=== PATIENT | female | born 1970 | race Two or more races ===

== ENCOUNTER 2019-03-15 12:17 | Inpatient (IN) | payer OTHER ==
[2019-03-09 11:51] LABS: Basophils # (auto) 0.1 uL; Eosinophils # (auto) 0.1 uL; Hemoglobin 11.9 g/dL (12.2-16.2); Lymphocytes # (auto) 1.6 uL; Mean Corpuscular Volume 70.9 fL (80.0-100.0); Nucleated Red Blood Cells % 0.1 %
[2019-03-09 11:53] LABS: Basophils % (auto) 1.1 % (0.0-2.0); Eosinophils % (auto) 1.8 % (0.0-7.0); Hematocrit 37.3 % (36.0-46.0); Lymphocytes % (auto) 22.2 % (10.0-50.0); Mean Corpuscular Hemoglobin 22.5 pg (28.0-32.0); Mean Corpuscular Hgb Conc. 31.8 g/dL (32.0-36.0); Monocytes # (auto) 0.4 uL; Neutrophils % (auto) 68.9 % (37.0-80.0); Platelet Count (auto) 166 10^3/uL (140-450); Red Blood Cells 5.27 10^6/uL (4.0-5.20); White Blood Cell 7.2 10^3/uL (4.4-10.8)
[2019-03-09 12:01] LABS: Urine Bacteria FEW /hpf (None Seen); Urine Blood TRACE /uL (Negative); Urine Mucus FEW (None Seen); Urine Specific Gravity 1.029 (1.001-1.035); Urine WBC 6 /hpf (0 - 5)
[2019-03-09 12:06] LABS: Red Cell Distribution Width 20.1 % (11.8-14.3)
[2019-03-09 12:15] LABS: INR 0.93 (0.9-1.15)
[2019-03-09 12:16] LABS: Partial Thromboplastin Time 26.6 sec (23.64-32.05)
[2019-03-09 12:47] LABS: Potassium 3.6 mmol/L (3.5-5.1)
[2019-03-09 12:57] LABS: Albumin 3.5 g/dL (3.4-5.0); BUN/Creatinine Ratio 20.9; Bilirubin, Total 0.5 mg/dL (0.2-1.0); Calcium 8.8 mg/dL (8.5-10.1); Total Protein 7.4 g/dL (6.4-8.2)
[~2019-03-15] VITALS: Ht 160 cm; Wt 85.7 kg
[2019-03-15] MEDS ORDERED: ceFAZolin 1GM/50ML 50 ML IV ONE ×3 (12:38→13:05)
[2019-03-15] MEDS ORDERED: SUCCINYLCHOLINE CHLORIDE 20 MG/ML 10ML VIAL IV ONE (12:55)
[2019-03-15] MEDS ORDERED: LIDOCAINE W/ EPINEPHRINE 1 % INJ 30ML ONE (12:59)
[2019-03-15] MEDS ORDERED: ACETAMINOPHEN 500 MG TAB PO PRN (13:00)
[2019-03-15] MEDS ORDERED: NITROGLYCERIN 0.4 MG SL TAB SL PRN (13:00)
[2019-03-15] MEDS ORDERED: MORPHINE SULF INJ 2 MG/ML SYRINGE 1ML IV PRN (13:00)
[2019-03-15] MEDS ORDERED: BUPIVACAINE 0.25% INJ 50ML VIAL ONE (13:00)
[2019-03-15] MEDS ORDERED: MIDAZOLAM HCL 1MG/1ML-2 ML VIAL ONE (13:02)
[2019-03-15] MEDS ORDERED: fentaNYL CITRATE 100 MCG/2 ML VL ONE (13:02)
[2019-03-15] MEDS ORDERED: ROCURONIUM 10MG/ML 10ML VIAL IV ONE (13:03)
[2019-03-15] MEDS ORDERED: PROPOFOL 10 MG/ML 20 ML IV ONE (13:03)
[2019-03-15] MEDS ORDERED: GLYCOPYRROLATE 0.2 MG/ML 1ML VIAL IV ONE (13:10)
[2019-03-15] MEDS ORDERED: NEOSTIGMINE 1 MG/ML INJ (10mg/10ML VIAL) IV ONE (13:10)
[2019-03-15] MEDS ORDERED: HYDROmorphone HCL 2 MG/ML VL ONE (14:19)
[2019-03-15] MEDS ORDERED: METHYLENE BLUE 0.5% 5MG/ML 10ml AMP IV ONE (14:24)
[2019-03-15] MEDS ORDERED: hydrALAZINE HCL 20 MG/ML VL IV PRN ×2 (15:30→15:45)
[2019-03-15] MEDS ORDERED: ONDANSETRON HCL 4 MG/2 ML VIAL IV ONE (15:30)
[2019-03-15] MEDS ORDERED: HYDROmorphone HCL 2 MG/ML VL IV PRN (15:30)
[2019-03-15] MEDS ORDERED: ePHEDrine SULFATE 50 MG/ML AMP IV PRN ×2 (15:30→15:45)
[2019-03-15] MEDS: HYDROmorphone HCL 2 MG/ML VL IV PRN ×3 (16:31→16:57)
--- NOTE | 2019-03-15 17:20 | NUR ---
REPORT RECEIVED RECEIVED REPORT FROM JANETTE JONES, [place]. WILL ENDORSE REPORT TO KAREN MCKEON. AWAITING PATIENTS ARRIVAL.
--- NOTE | 2019-03-15 17:30 | NUR ---
ASSUMED CARE OF PATIENT FROM RECOVERY ROOM NO S/S OF DISTRESS. RESPIRATIONS EVEN AND UNLABORED. DRESSINGS CLEAN, DRY, AND INTACT. ABDOMINAL BINDER ON. PATIENT IN BED LOW LOCK POSITION, CALL LIGHT IN REACH. WILL CONTINUE CARE.
--- NOTE | 2019-03-15 17:45 | NUR ---
SPOKE WITH MD FLAHERTY TO VERIFY ADMIT ORDER TO [facility]. ORDERED VERIFIED. WILL CONTINUE CARE.
[2019-03-15] MEDS: SODIUM CHLORIDE 0.9% 1,000 ML IV SCH ×2 (18:30→20:48)
--- NOTE | 2019-03-15 19:35 | NUR ---
CLOSING NOTE ENDORSED CARE TO SURGICAL TRAINING SPECIALIST RN. PATIENT IN BED LOW LOCK POSITION, CALL LIGHT IN REACH. NO S/S OF DISTRESS. DRESSINGS CLEAN, DRY, AND INTACT, ABDOMINAL BINDER ON. FAMILY AT BEDSIDE.
--- NOTE | 2019-03-15 20:00 | NUR ---
OPENING NOTE RECEIVED REPORT FROM DAYSHIFT RN. ASSUMING ROLE OF CARE OF PATIENT AT THIS TIME. PATIENT SHOWING NO SIGN OF DISTRESS, SHORTNESS OF BREATH, BUT PATIENT DOES STATE PAIN. PATIENT IS FATIGUED AND ABLE TO RESPOND IN SLOW SHORT SENTENCES. FAMILY AT BEDSIDE. PATIENT AND FAMILY EDUCATED ON PLAN OF CARE FOR THE NIGHT AND PATIENT AND FAMILY VERBALIZED UNDERSTANDING. INCISIONS ARE CLEAN DRY AND INTACT. NO DRAINAGE NOTED. BED LOWERED, CALL LIGHT WITHIN REACH, AND PATIENT WILL BE ROUNDED ON EVERY HOUR AND NEEDED.
[2019-03-15 22:21] VITALS: BP 118/71
[2019-03-16] VITALS (8 sets, daily range): BP systolic 86–105; BP diastolic 48–68
[2019-03-16] MEDS: MORPHINE SULFATE 4 MG/ML SYR/VIAL IV PRN ×4 (01:00→14:36)
[2019-03-16] MEDS: SODIUM CHLORIDE 0.9% 1,000 ML IV SCH ×3 (04:48→20:48)
[2019-03-16 06:49] LABS: Basophils # (auto) 0 uL; Eosinophils # (auto) 0 uL; Hemoglobin 10.9 g/dL (12.2-16.2); White Blood Cell 10.8 10^3/uL (4.4-10.8)
[2019-03-16 06:51] LABS: Basophils % (auto) 0.1 % (0.0-2.0); Hematocrit 33.7 % (36.0-46.0); Lymphocytes # (auto) 0.9 uL; Lymphocytes % (auto) 8.5 % (10.0-50.0); Mean Corpuscular Hemoglobin 22.9 pg (28.0-32.0); Mean Corpuscular Hgb Conc. 32.4 g/dL (32.0-36.0); Mean Corpuscular Volume 70.7 fL (80.0-100.0); Monocytes # (auto) 0.6 uL; Monocytes % (auto) 5.7 % (0.0-12.0); Neutrophils # (auto) 9.3 uL; Neutrophils % (auto) 85.7 % (37.0-80.0); Nucleated Red Blood Cells % 0.1 %; Platelet Count (auto) 144 10^3/uL (140-450); Red Blood Cells 4.76 10^6/uL (4.0-5.20)
--- NOTE | 2019-03-16 06:54 | NUR ---
KARAN OCAMPO'D PER ORDER
--- NOTE | 2019-03-16 07:00 | NUR ---
Opening Shift Note Assumed care of patient, awake and alert. No S/S of distress/SOB or pain. Instructed on POC and to call for assist PRN, will continue to monitor. Bed locked in the lowest position. Bed rails up x2. Call light in reach.
[2019-03-16] MEDS: ONDANSETRON HCL 4 MG/2 ML VIAL IV PRN ×2 (07:25→14:37)
[2019-03-16 07:29] LABS: Red Cell Distribution Width 20.1 % (11.8-14.3)
--- NOTE | 2019-03-16 07:30 | NUR ---
AT THE BEDSIDE DR. JOHNSON AT THE BEDSIDE UPDATED PATIENT ON POC. ALL QUESTIONS AND CONCERNS ADDRESSED AT THIS TIME.
--- NOTE | 2019-03-16 11:04 | NUR ---
PATIENT CONCERNS PATIENT STATES, "I DON'T THINK I CAN GO HOME TODAY. I CAN BARELY WALK AND DON'T FEEL LIKE EATING. THE PAIN IS TOO MUCH." CALLED MD AND LEFT MESSAGE. AWAITING CALL BACK.
--- NOTE | 2019-03-16 14:53 | NUR ---
AWARE DR. FLAHERTY AWARE OF PATIENTS CONCERNS AND OF PATIENTS PAIN. NEW ORDERS RECEIVED. ORDERS READ BACK AND VERIFIED.
[2019-03-16] MEDS ORDERED: KETOROLAC TROMETH 60MG/2ML VIAL IM ONE (15:00)
--- NOTE | 2019-03-16 15:00 | NUR ---
POM PATIENTS POM AT THE BEDSIDE. PATIENTS FAMILY INSTRUCTED TO TAKE HOME RX OF CIPROFLOXACIN AND HYDROCODONE. PATIENT AWARE THAT SHE IS NOT TO TAKE POM WHILE IN THE HOSPITAL. PATIENT AND FAMILY VERBALIZED UNDERSTANDING.
[2019-03-16] MEDS: HYDROcodone-ACET 10/325MG TAB PO PRN ×2 (17:23→21:36)
[2019-03-16] MEDS: CIPROFLOXACIN HCL 500 MG TAB PO SCH ×2 (17:23→21:36)
--- NOTE | 2019-03-16 17:33 | NUR ---
STAT LABS CONTACTED LAB REGARDING PENDING STAT LAB DRAW. PER LAB, ANTHROPOLOGY LECTURER WILL COME UP NOW.
[2019-03-16 18:01] LABS: Eosinophils # (auto) 0 uL; Hemoglobin 10.7 g/dL (12.2-16.2); Lymphocytes # (auto) 1.2 uL; Monocytes # (auto) 0.8 uL
[2019-03-16 18:02] LABS: Basophils # (auto) 0 uL; Basophils % (auto) 0.4 % (0.0-2.0); Eosinophils % (auto) 0.1 % (0.0-7.0); Hematocrit 33.7 % (36.0-46.0); Lymphocytes % (auto) 10.3 % (10.0-50.0); Mean Corpuscular Hemoglobin 22.6 pg (28.0-32.0); Mean Corpuscular Hgb Conc. 31.8 g/dL (32.0-36.0); Monocytes % (auto) 7.2 % (0.0-12.0); Neutrophils # (auto) 9.6 uL; Nucleated Red Blood Cells % 0.1 %; Platelet Count (auto) 152 10^3/uL (140-450); Red Blood Cells 4.74 10^6/uL (4.0-5.20); White Blood Cell 11.7 10^3/uL (4.4-10.8)
[2019-03-16 18:07] LABS: Red Cell Distribution Width 20.1 % (11.8-14.3)
--- NOTE | 2019-03-16 18:48 | NUR ---
NOTIFIED DR. FLAHERTY NOTIFIED OF PATIENTS STAT LAB RESULTS. NO NEW ORDERS RECEIVED.
--- NOTE | 2019-03-16 19:00 | NUR ---
CLOSING NOTE Patient is awake and alert. No S/S of distress/SOB or pain. Bed locked in the lowest position. Rails up x2. Call light in reach. Endorsed care to night nurse.
--- NOTE | 2019-03-16 19:20 | NUR ---
Opening Shift Note Assumed care of patient, awake and alert. No S/S of distress/SOB. Family members at bedside. Instructed on POC and to call for assist PRN, will continue to monitor for changes Q1hr and PRN. Bed locked and in lowest position.
--- NOTE | 2019-03-16 21:50 | NUR ---
PT ROUNDS PT BP 80s/50s, HOB elevated, feet elevated pt currently running ns 125 inform pt to please notify of any s/sx;s informed pt will make md aware and continue to monitor pt
--- NOTE | 2019-03-16 21:51 | NUR ---
CALLED DR. HANLEY Called Dr. Hanley left voicemail in regards to pt Low BP will continue to monitor pt and will await call back
--- NOTE | 2019-03-16 23:04 | NUR ---
REPAGED MD FLAHERTY Left Voicemail in regards pt BP Multiple BPs taken Right Upper ARM 76/49, Forearm 96/49 Left Upper arm 80/49 Forearm 82/47 will continue to monitor pt.
--- NOTE | 2019-03-16 23:20 | NUR ---
MD FLAHERTY ON THE PHONE Informed MD in regards to pt's blood pressure. Following Telephone orders Given RB IV BOLUS NS DC Mchenry 10/325 Morphine 2 mg IV NORCO 5/325 mg PO q4 PRN will continue to monitor pt.
--- NOTE | 2019-03-16 23:25 | NUR ---
CALLED [facility] MD requested morphine to be placed on hold, inform pharmacist unable to do it on my end, per pharmacist dc morphine and reinstate when receive order to reinstated will continue to monitor pt.
[2019-03-16] MEDS ORDERED: SODIUM CHLORIDE 0.9% 2,550 ML IV ONE (23:45)
--- NOTE | 2019-03-17 03:14 | NUR ---
PT ROUNDS PT rounds with yvonne bhandari resting no s/sx's of distress or sob noted will continue to monitor pt.
[2019-03-17 05:00] VITALS: BP 95/52
[2019-03-17] MEDS: SODIUM CHLORIDE 0.9% 1,000 ML IV SCH ×2 (05:23→12:06)
[2019-03-17] MEDS: HYDROcodone-ACET 5/325MG TAB PO PRN ×2 (05:24→14:20)
--- NOTE | 2019-03-17 07:22 | NUR ---
CLOSING NOTE Report endorsed to day RN, pt awake no s/sx's of distress or sob noted
--- NOTE | 2019-03-17 07:30 | NUR ---
OPENING SHIFT NOTE ASSUMED CARE OF PATIENT. PATIENT IS A &OX4, CA[place]DI[place] SPEAKING WITH C/O 6/10 POST OP PAIN. PATIENT MEDICATED FOR PAIN. EDUCATED RECEPTION CLERK LIGHT USE PRN, PATIENT VERBALIZED UNDERSTANDING. NO CURRENT S/S OF DISTRESS NOTED, CONTINUING TO MONITOR PATIENT Q1 HR
[2019-03-17 09:00] VITALS: BP 94/48
[2019-03-17] MEDS: CIPROFLOXACIN HCL 500 MG TAB PO SCH (10:00)
--- NOTE | 2019-03-17 11:20 | NUR ---
IV removal IV DC'd IN R HAND with sterile technique, catheter fully intact. Pressure dressing applied to site. Patient tolerated procedure well. Discharged with aftercare instructions per MD.
[2019-03-17 13:00] VITALS: BP 92/58
[2019-03-17 15:02] VITALS: BP 92/58
--- NOTE | 2019-03-17 16:20 | NUR ---
DISCHARGE PATIENT LEFT VIA WHEELCHAIR, WITH DAUGHTERS AND FAMILY. NO CURRENT S/S OF DISTRESS NOTED AT THIS TIME, IV'S REMOVED, PATIENT EDUCATED ON CONDITION AND TREATMENT, EDUCATION MATERIAL GIVEN TO PATIENT, ALL PERSONAL PROPERTY IN POSSESSION
== END 2019-03-17 16:51 | disposition home or self-care (01) | DRG 743 ==
LOC: SUR 12:17 → EAST 12:18
PROVIDERS: ADMIT Obstetrics & Gynecology; ATTEND Obstetrics & Gynecology
PROC: 0UT74ZZ Resection of Bilateral Fallopian Tubes, Percutaneous Endoscopic Approach (ICD-10-PCS; 2019-03-15)
PROC: 0USG8ZZ Reposition Vagina, Via Natural or Artificial Opening Endoscopic (ICD-10-PCS; 2019-03-15)
PROC: 8E0W4CZ Robotic Assisted Procedure of Trunk Region, Percutaneous Endoscopic Approach (ICD-10-PCS; 2019-03-15)
PROC: 0UT94ZL Resection of Uterus, Supracervical, Percutaneous Endoscopic Approach (ICD-10-PCS; principal; 2019-03-15 13:10)
DX: N81.2 Incomplete uterovaginal prolapse (principal); N80.0 Endometriosis of uterus; N83.209 Unspecified ovarian cyst, unspecified side; N73.6 Female pelvic peritoneal adhesions (postinfective); Z90.711 Acquired absence of uterus with remaining cervical stump; Z79.899 Other long term (current) drug therapy; Z88.2 Allergy status to sulfonamides; Z88.8 Allergy status to other drugs, medicaments and biological substances; Z98.51 Tubal ligation status
CPT/HCPCS: 36415; 80053; 81001; 84702; 85025; 85610; 85730; 86850; 86900; 86901; 87086; G0378; J0330; J0690; J1885; J2250; J2405; J2704; J3490

== ENCOUNTER 2019-07-12 15:02 | Day surgery (SDC) | payer OTHER ==
[2019-07-10 14:01] LABS: Basophils # (auto) 0.1 uL; Eosinophils # (auto) 0.1 uL; Hemoglobin 12.5 g/dL (12.2-16.2); Lymphocytes # (auto) 1.6 uL; Mean Corpuscular Hemoglobin 23.1 pg (28.0-32.0); Monocytes # (auto) 0.6 uL; White Blood Cell 7.5 10^3/uL (4.4-10.8)
[2019-07-10 14:03] LABS: Basophils % (auto) 1.1 % (0.0-2.0); Eosinophils % (auto) 1.3 % (0.0-7.0); Hematocrit 39.5 % (36.0-46.0); Lymphocytes % (auto) 21.8 % (10.0-50.0); Mean Corpuscular Hgb Conc. 31.7 g/dL (32.0-36.0); Mean Corpuscular Volume 72.9 fL (80.0-100.0); Monocytes % (auto) 7.6 % (0.0-12.0); Neutrophils # (auto) 5.1 uL; Neutrophils % (auto) 68.2 % (37.0-80.0); Nucleated Red Blood Cells % 0.1 %; Platelet Count (auto) 171 10^3/uL (140-450); Red Blood Cells 5.43 10^6/uL (4.0-5.20); Red Cell Distribution Width 20.2 % (11.8-14.3)
[2019-07-10 14:15] LABS: INR 0.95 (0.9-1.15); Partial Thromboplastin Time 26.7 sec (23.64-32.05)
[2019-07-10 14:16] LABS: Urine Bacteria NONE SEEN /hpf (None Seen); Urine Blood TRACE /uL (Negative); Urine Mucus FEW (None Seen); Urine WBC <1 /hpf (0 - 5)
[2019-07-10 14:46] LABS: Potassium 3.9 mmol/L (3.5-5.1)
[2019-07-10 14:56] LABS: Albumin 3.8 g/dL (3.4-5.0); BUN/Creatinine Ratio 16.4; Bilirubin, Total 0.8 mg/dL (0.2-1.0); Calcium 9.1 mg/dL (8.5-10.1); Total Protein 7.7 g/dL (6.4-8.2)
[~2019-07-12] VITALS: Ht 160 cm; Wt 75.7 kg
[2019-07-12] MEDS ORDERED: ceFAZolin 1GM/50ML 50 ML IV ONE (15:38)
[2019-07-12] MEDS ORDERED: ONDANSETRON HCL 4 MG/2 ML VIAL IV PRN (15:45)
[2019-07-12] MEDS ORDERED: fentaNYL CITRATE 100 MCG/2 ML VL ONE (16:00)
[2019-07-12] MEDS ORDERED: SODIUM CHLORIDE LOCK 10 ML ONE (16:00)
[2019-07-12] MEDS ORDERED: MIDAZOLAM HCL 1MG/1ML-2 ML VIAL ONE (16:00)
[2019-07-12] MEDS ORDERED: ONDANSETRON HCL 4 MG/2 ML VIAL ONE (16:00)
[2019-07-12] MEDS ORDERED: PROPOFOL 10 MG/ML 20 ML IV ONE (16:00)
[2019-07-12] MEDS ORDERED: BUPIVACAINE 0.25% INJ 50ML VIAL ONE (16:37)
[2019-07-12] MEDS ORDERED: LIDOCAINE W/ EPINEPHRINE 1 % INJ 30ML ONE (16:37)
[2019-07-12] MEDS ORDERED: ceFAZolin 1GM VL ONE (16:37)
[2019-07-12] MEDS ORDERED: CONJ ESTROGENS 0.625MG/GM VAG CRM 30GM PV ONE (16:37)
[2019-07-12 18:11] VITALS: BP 107/69
== END 2019-07-12 18:11 | disposition home or self-care (01) ==
LOC: SUR 15:02
PROVIDERS: ATTEND Obstetrics & Gynecology
DX: N81.11 Cystocele, midline (principal); N39.3 Stress incontinence (female) (male); N89.8 Other specified noninflammatory disorders of vagina; Z98.51 Tubal ligation status; Z98.890 Other specified postprocedural states; Z88.8 Allergy status to other drugs, medicaments and biological substances; Z88.2 Allergy status to sulfonamides; Z90.710 Acquired absence of both cervix and uterus
CPT/HCPCS: 36415; 57240; 57288; 80053; 81001; 85025; 85610; 85730; 87086; 93005; J0690; J2001; J2250; J2405; J2704; J3010; J3490

== ENCOUNTER 2019-07-26 11:53 | Day surgery (SDC) | payer OTHER ==
[2019-07-20 13:24] LABS: Urine WBC None Seen /hpf (0 - 5)
[2019-07-20 13:34] LABS: Urine Bacteria NONE SEEN /hpf (None Seen); Urine Blood Negative /uL (Negative); Urine Mucus FEW (None Seen); Urine Specific Gravity 1.028 (1.001-1.035)
[2019-07-20 13:41] LABS: Basophils # (auto) 0.1 uL; Eosinophils # (auto) 0.1 uL; Eosinophils % (auto) 1.8 % (0.0-7.0); Hemoglobin 12.3 g/dL (12.2-16.2); Monocytes # (auto) 0.6 uL; Neutrophils # (auto) 4.7 uL; Neutrophils % (auto) 65.3 % (37.0-80.0); Nucleated Red Blood Cells % 0.1 %
[2019-07-20 13:42] LABS: Basophils % (auto) 1.1 % (0.0-2.0); Hematocrit 38.1 % (36.0-46.0); Lymphocytes # (auto) 1.8 uL; Lymphocytes % (auto) 24.2 % (10.0-50.0); Mean Corpuscular Hemoglobin 23.3 pg (28.0-32.0); Mean Corpuscular Hgb Conc. 32.2 g/dL (32.0-36.0); Mean Corpuscular Volume 72.2 fL (80.0-100.0); Monocytes % (auto) 7.6 % (0.0-12.0); Platelet Count (auto) 145 10^3/uL (140-450); Red Blood Cells 5.28 10^6/uL (4.0-5.20); Red Cell Distribution Width 19.9 % (11.8-14.3); White Blood Cell 7.3 10^3/uL (4.4-10.8)
[2019-07-20 13:50] LABS: Calcium 8.9 mg/dL (8.5-10.1); Potassium 4.1 mmol/L (3.5-5.1)
[2019-07-20 13:55] LABS: Albumin 3.4 g/dL (3.4-5.0); Bilirubin, Total 0.6 mg/dL (0.2-1.0)
[2019-07-20 13:56] LABS: INR 0.95 (0.9-1.15); Partial Thromboplastin Time 27.5 sec (23.64-32.05)
[~2019-07-26] VITALS: Ht 30.5 cm; Wt 0.5 kg
[2019-07-26] MEDS ORDERED: ceFAZolin 1GM/50ML 50 ML IV ONE (12:19)
[2019-07-26] MEDS ORDERED: VASOPRESSIN 20 UNIT/ML ONE (13:32)
[2019-07-26] MEDS ORDERED: LIDOCAINE 1% HCL (LOCAL ANESTH.) INJ 20ML MDV ONE (13:33)
[2019-07-26] MEDS ORDERED: ceFAZolin 1GM VL ONE (13:33)
[2019-07-26] MEDS ORDERED: BUPIVACAINE 0.25% INJ 50ML VIAL ONE (13:34)
[2019-07-26] MEDS ORDERED: SUCCINYLCHOLINE CHLORIDE 20 MG/ML 10ML VIAL IV ONE (13:53)
[2019-07-26] MEDS ORDERED: LACTATED RINGER'S 1,000 ML IV SCH (13:58)
[2019-07-26] MEDS ORDERED: ONDANSETRON HCL 4 MG/2 ML VIAL IV PRN ×2 (14:00→14:15)
[2019-07-26] MEDS ORDERED: MIDAZOLAM HCL 1MG/1ML-2 ML VIAL IV PRN (14:15)
[2019-07-26] MEDS ORDERED: LABETALOL HCL 5 MG/ML 4ML SYRINGE IV PRN (14:15)
[2019-07-26] MEDS ORDERED: HYDROmorphone HCL 2 MG/ML VL IV PRN (14:15)
[2019-07-26] MEDS ORDERED: MORPHINE SULFATE 4 MG/ML SYR/VIAL IV PRN (14:15)
[2019-07-26] MEDS ORDERED: ePHEDrine SULFATE 50 MG/ML AMP IV PRN (14:15)
[2019-07-26] MEDS ORDERED: KETOROLAC TROMETH 30 MG/ML 1ML VIAL IV ONE (14:15)
[2019-07-26] MEDS ORDERED: fentaNYL CITRATE 100 MCG/2 ML VL ONE (14:16)
[2019-07-26] MEDS ORDERED: MIDAZOLAM HCL 1MG/1ML-2 ML VIAL ONE (14:16)
[2019-07-26] MEDS ORDERED: MEPERIDINE HCL (25 MG/ML) 1ML VIAL ONE (14:16)
[2019-07-26] MEDS ORDERED: DexAMETHasone SOD PHOS 10MG/1ML VIAL INJ ONE (14:25)
[2019-07-26] MEDS ORDERED: PROPOFOL 10 MG/ML 20 ML IV ONE (14:25)
[2019-07-26] MEDS ORDERED: METOCLOPRAMIDE HCL 5MG/ml INJ 2ml VIAL ONE (14:25)
[2019-07-26] MEDS ORDERED: CONJ ESTROGENS 0.625MG/GM VAG CRM 30GM PV ONE (14:31)
[2019-07-26] MEDS ORDERED: ONDANSETRON HCL 4 MG/2 ML VIAL ONE (14:34)
[2019-07-26 17:53] VITALS: BP 97/60
== END 2019-07-26 18:20 | disposition home or self-care (01) ==
LOC: SUR 11:53
PROVIDERS: ATTEND Obstetrics & Gynecology
DX: N81.11 Cystocele, midline (principal); N39.3 Stress incontinence (female) (male); E66.9 Obesity, unspecified; Z88.8 Allergy status to other drugs, medicaments and biological substances; Z90.710 Acquired absence of both cervix and uterus; Z98.51 Tubal ligation status; Z88.1 Allergy status to other antibiotic agents; Z88.2 Allergy status to sulfonamides; Z68.28 Body mass index [BMI] 28.0-28.9, adult; Z98.890 Other specified postprocedural states
CPT/HCPCS: 36415; 57135; 57240; 57288; 80053; 81001; 85025; 85610; 85730; 88305; 93971; C1771; J0330; J0690; J1100; J1170; J2001; J2175; J2250; J2405; J2704; J2765; J3010; J3490

== ENCOUNTER → 2019-09-13 | Day surgery (SDC) | payer OTHER ==
[2019-09-12 09:14] LABS: Basophils # (auto) 0.1 uL; Hemoglobin 11.9 g/dL (12.2-16.2); Monocytes # (auto) 0.5 uL
[2019-09-12 09:16] LABS: Basophils % (auto) 1.2 % (0.0-2.0); Eosinophils # (auto) 0.1 uL; Eosinophils % (auto) 2.1 % (0.0-7.0); Hematocrit 37.3 % (36.0-46.0); Lymphocytes # (auto) 1.4 uL; Lymphocytes % (auto) 21.9 % (10.0-50.0); Mean Corpuscular Hemoglobin 22.8 pg (28.0-32.0); Mean Corpuscular Hgb Conc. 31.9 g/dL (32.0-36.0); Mean Corpuscular Volume 71.5 fL (80.0-100.0); Monocytes % (auto) 7.3 % (0.0-12.0); Neutrophils # (auto) 4.4 uL; Neutrophils % (auto) 67.5 % (37.0-80.0); Nucleated Red Blood Cells % 0.1 %; Platelet Count (auto) 185 10^3/uL (140-450); Red Blood Cells 5.21 10^6/uL (4.0-5.20); Red Cell Distribution Width 18.6 % (11.8-14.3); White Blood Cell 6.5 10^3/uL (4.4-10.8)
[2019-09-12 09:17] LABS: Urine Bacteria FEW /hpf (None Seen); Urine Blood Negative /uL (Negative); Urine Mucus FEW (None Seen); Urine WBC <1 /hpf (0 - 5)
[2019-09-12 09:31] LABS: Partial Thromboplastin Time 27.6 sec (23.64-32.05)
[2019-09-12 09:40] LABS: Albumin 3.4 g/dL (3.4-5.0); Calcium 8.5 mg/dL (8.5-10.1); Potassium 4.2 mmol/L (3.5-5.1)
[2019-09-12 09:43] LABS: BUN/Creatinine Ratio 15.2; Bilirubin, Total 0.7 mg/dL (0.2-1.0); Total Protein 7.4 g/dL (6.4-8.2)
[~2019-09-13] VITALS: Ht 160 cm; Wt 78.0 kg
[~2019-09-13] MED LIST: BUPIVACAINE 0.25% INJ 50ML VIAL ONE; CONJ ESTROGENS 0.625MG/GM VAG CRM 30GM PV ONE; LACTATED RINGER'S 1,000 ML IV SCH; LIDOCAINE W/ EPINEPHRINE 1% 20ML VIAL ONE; ONDANSETRON HCL 4 MG/2 ML VIAL IV PRN; PROPOFOL 10 MG/ML 20 ML IV ONE; ceFAZolin 1GM VL ONE; ceFAZolin 1GM/50ML 50 ML IV ONE; ePHEDrine SULFATE 50 MG/ML AMP IV PRN; fentaNYL CITRATE 100 MCG/2 ML VL IV PRN; fentaNYL CITRATE 100 MCG/2 ML VL ONE; hydrALAZINE HCL 20 MG/ML VL IV PRN
[2019-09-13] MEDS: fentaNYL CITRATE 100 MCG/2 ML VL IV ONE ×2 (20:38→20:48)
[2019-09-13 21:05] VITALS: BP 108/67
== END | disposition home or self-care (01) ==
LOC: SUR 14:00
PROVIDERS: ATTEND Obstetrics & Gynecology
DX: N81.6 Rectocele (principal); N81.5 Vaginal enterocele; N81.89 Other female genital prolapse; K21.9 Gastro-esophageal reflux disease without esophagitis; E66.9 Obesity, unspecified; Z88.8 Allergy status to other drugs, medicaments and biological substances; Z88.2 Allergy status to sulfonamides; Z98.51 Tubal ligation status; Z90.710 Acquired absence of both cervix and uterus; Z68.30 Body mass index [BMI] 30.0-30.9, adult
CPT/HCPCS: 36415; 57282; 80053; 81001; 85025; 85610; 85730; 88305; J0690; J2405; J2704; J3010; J3490